=== PATIENT | male | born 1955 | race Caucasian/White ===

== ENCOUNTER 2016-10-06 08:00 | Outpatient (CLI) | payer MEDICARE | END 2016-10-06 08:01 | disposition home or self-care (01) | DX: M86.172 Other acute osteomyelitis, left ankle and foot (principal) ==

== ENCOUNTER 2016-10-11 | Outpatient (CLI) | payer MEDICARE | END 2016-10-11 15:28 | disposition critical access hospital (66) | DX: R11.2 Nausea with vomiting, unspecified (principal) | CPT/HCPCS: A0425; A0427 ==

== ENCOUNTER 2016-10-18 11:51 | Outpatient (CLI) | payer MEDICARE | END 2016-10-18 11:52 | disposition critical access hospital (66) | DX: R53.81 Other malaise (principal); R53.1 Weakness; R19.7 Diarrhea, unspecified; R63.0 Anorexia; R63.8 Other symptoms and signs concerning food and fluid intake | CPT/HCPCS: A0425; A0427 ==

== ENCOUNTER 2016-10-18 12:12 | Emergency (ER) | payer MEDICARE ==
[2016-10-18] MEDS ORDERED: SODIUM CHLORIDE 0.9% 1,000 ML IV ONE ×2 (13:19)
[2016-10-18] MEDS ORDERED: FUROSEMIDE 40 MG/4 ML VIAL IVP STA (16:38)
[2016-10-18] MEDS ORDERED: FUROSEMIDE 40 MG/4 ML VIAL ONE (17:07)
[2016-10-18] MEDS ORDERED: MORPHINE 2 MG/ML SYRINGE IVP STA (17:37)
[2016-10-18] MEDS ORDERED: MORPHINE 2 MG/ML SYRINGE ONE (17:50)
== END 2016-10-18 18:45 | disposition short-term general hospital (02) ==
DX: A04.7 Enterocolitis due to Clostridium difficile (principal); R09.02 Hypoxemia; E87.1 Hypo-osmolality and hyponatremia; E87.5 Hyperkalemia; R74.0 Nonspecific elevation of levels of transaminase and lactic acid dehydrogenase [LDH]; I95.9 Hypotension, unspecified; I50.9 Heart failure, unspecified; K72.90 Hepatic failure, unspecified without coma; I25.2 Old myocardial infarction; I25.10 Atherosclerotic heart disease of native coronary artery without angina pectoris; Z79.01 Long term (current) use of anticoagulants; E11.40 Type 2 diabetes mellitus with diabetic neuropathy, unspecified; Z79.4 Long term (current) use of insulin; Z79.84 Long term (current) use of oral hypoglycemic drugs; J44.9 Chronic obstructive pulmonary disease, unspecified
CPT/HCPCS: 36415; 71010; 80053; 80162; 80307; 83605; 83690; 83880; 84484; 85025; 85610; 85730; 93005; 93010; 96361; 96374; 96375; 99284; 99285; G0480

== ENCOUNTER 2016-10-18 18:37 | Outpatient (CLI) | payer MEDICARE | END 2016-10-18 18:38 | disposition short-term general hospital (02) | DX: K72.90 Hepatic failure, unspecified without coma (principal); R09.02 Hypoxemia; E87.1 Hypo-osmolality and hyponatremia; E87.5 Hyperkalemia; R74.0 Nonspecific elevation of levels of transaminase and lactic acid dehydrogenase [LDH] | CPT/HCPCS: A0425; A0426 ==